=== PATIENT | female | born 1950 | race Caucasian/White ===

== ENCOUNTER 2019-09-15 05:25 | Inpatient (IN) | payer OTHER, MEDICARE ==
[2019-09-12 10:45] LABS: BASOPHILS % (AUTO) 0.3 % (0.0-2.0); EOSINOPHILS # (AUTO) 0.1 K/uL (0.0-0.4); EOSINOPHILS % (AUTO) 1.7 % (0.0-4.0); HEMATOCRIT 39.1 % (36-48); HEMOGLOBIN 13.1 g/dL (12.0-16.0); LYMPHOCYTES % (AUTO) 17.5 % (20.5-51.5); MEAN CORPUSCULAR HEMOGLOBIN 32 pg (27-31); MEAN CORPUSCULAR HGB CONC 34 % (32-36); MEAN CORPUSCULAR VOLUME 95 fL (79.0-98.0); MONOCYTES # (AUTO) 0.5 K/uL (0.0-1.0); MONOCYTES % (AUTO) 8.8 % (1.7-9.3); NEUTROPHILS # (AUTO) 4.1 K/uL (1.8-7.7); NEUTROPHILS % (AUTO) 71.7 % (40.0-70.0); PLATELET COUNT (AUTO) 221 K/uL (130-430); RED CELL DISTRIBUTION WIDTH 13.9 % (9.0-15.0); WHITE BLOOD COUNT (AUTO) 5.7 K/uL (4.8-10.8)
[2019-09-12 11:02] LABS: CREATININE 0.92 mg/dL (0.55-1.30); POTASSIUM 3.9 mmol/L (3.5-5.1)
[2019-09-12 11:20] LABS: BILIRUBIN,URINE NEGATIVE (NEGATIVE); CLARITY/URINE CLEAR (CLEAR); COLOR,URINE YELLOW (YELLOW); GLUCOSE,URINE NEGATIVE (NEGATIVE); KETONES,URINE NEGATIVE (NEGATIVE); LEUKOCYTE ESTERASE ,URINE NEGATIVE (NEGATIVE); NITRITE, URINE NEGATIVE (NEGATIVE); PROTEIN URINE NEGATIVE (NEGATIVE); UROBILINOGEN,URINE 0.2 (0.2-1.0)
[2019-09-12 11:21] LABS: BLOOD, URINE TRACE (NEGATIVE)
[2019-09-12 11:53] LABS: BACTERIA,URINE RARE /HPF (None Seen); MUCUS,URINE 1+ /LPF (None Seen); RBC,URINE 0-3 /HPF (0-3); WBC,URINE 0-3 /HPF (0-3)
[~2019-09-15] VITALS: Ht 165.1 cm; Wt 102.1 kg
[~2019-09-15 05:25] MED LIST: CIME800T PO; CYM30 PO; DILT120C89 PO; EST1 PO; GABA-533 PO; SPIR100T5 PO; TELM80TA2 PO
[2019-09-15] MEDS ORDERED: ACETAMINOPHEN 500 MG TABLET ONE (05:49)
[2019-09-15] MEDS ORDERED: GABAPENTIN 300 MG CAPSULE ONE (05:49)
[2019-09-15] MEDS ORDERED: TRANEXAMIC ACID 650 MG TABLET ONE (05:50)
[2019-09-15] MEDS ORDERED: CELECOXIB 200 MG CAPSULE ONE (05:50)
[2019-09-15] MEDS ORDERED: oxyCODONE HCL 10 MG TAB.ER.12H PO ONE ×2 (05:50→07:00)
[2019-09-15] MEDS ORDERED: PROMETHAZINE-DM 6.25 MG-15 MG/5 ML UDC ONE (05:50)
[2019-09-15] MEDS ORDERED: NACL 0.9% 1,000 ML IV ONE (07:00)
[2019-09-15] MEDS ORDERED: ACETAMINOPHEN 500 MG TABLET PO ONE (07:00)
[2019-09-15] MEDS ORDERED: CEFAZOLIN 2 GM IVPB PREMIX 50 ML IV ONE (07:00)
[2019-09-15] MEDS ORDERED: GABAPENTIN 300 MG CAPSULE PO ONE (07:00)
[2019-09-15] MEDS ORDERED: CELECOXIB 200 MG CAPSULE PO ONE (07:00)
[2019-09-15] MEDS ORDERED: TRANEXAMIC ACID 650 MG TABLET PO ONE (07:00)
[2019-09-15] MEDS ORDERED: ROPIVACAINE HCL/PF 5 MG/ML 0.5% 30 ML VIAL INJ ONE (07:25)
[2019-09-15] MEDS ORDERED: TRANEXAMIC ACID 1,000 MG/10 ML VIAL IV ONE (07:25)
[2019-09-15] MEDS ORDERED: VANCOMYCIN HCL 1000 MG/VIAL IV ONE (07:25)
[2019-09-15] MEDS ORDERED: WATER FOR IRRIGATION,STERILE 1,000 ML IRRIG.SOLN IR ONE (07:25)
[2019-09-15] MEDS ORDERED: POLYMYXIN 500,000/BACIT.10,000 UNITS in NS IRR 1 L IR ONE (07:25)
[2019-09-15] MEDS ORDERED: MORPHINE SULFATE 10MG/10ML PF AMP EP ONE (07:25)
[2019-09-15] MEDS ORDERED: PROPOFOL 200MG/ 20ML VIAL (DIPRIVAN) IV ONE (07:25)
[2019-09-15] MEDS ORDERED: MIDAZOLAM HCL 5 MG/5 ML VIAL IVP ONE (07:25)
[2019-09-15] MEDS ORDERED: LR 1,000 ML IV.SOLN IV ONE (07:25)
[2019-09-15] MEDS ORDERED: BUPIVACAINE /DEX PF 0.75% SPINAL 2 ML AMP INJ ONE (07:25)
[2019-09-15] MEDS ORDERED: KETOROLAC TROMETHAMINE 60 MG/2 ML VIAL IM PRN (08:15)
[2019-09-15] MEDS ORDERED: MORPHINE SULFATE 10MG/10ML PF AMP SP SCH (08:15)
[2019-09-15] MEDS ORDERED: NALBUPHINE HCL 10 MG/ML AMP IVP PRN (08:15)
[2019-09-15] MEDS ORDERED: DIPHENHYDRAMINE INJ 50 MG/ML VIAL IVP PRN (08:15)
[2019-09-15] MEDS ORDERED: ONDANSETRON HCL 4 MG/2 ML VIAL IVP PRN (08:15)
[2019-09-15] MEDS ORDERED: fentaNYL CITRATE/PF 100 MCG/2 ML AMP IVP PRN ×2 (08:15)
[2019-09-15] MEDS ORDERED: NALOXONE HCL 0.4 MG/ML AMP (NARCAN) IVP PRN ×2 (08:15)
[2019-09-15] MEDS ORDERED: D5/0.45 NS 1,000 ML IV ONE (09:31)
[2019-09-15] MEDS ORDERED: ACETAMINOPHEN 325 MG TABLET PO PRN (09:45)
[2019-09-15] MEDS ORDERED: BISACODYL 10 MG/SUPPOSITORY RC PRN (09:45)
[2019-09-15] MEDS ORDERED: CIMETIDINE Non-Formulary 400 MG TABLET PO SCH (12:30)
[2019-09-15] MEDS ORDERED: DILTIAZEM HCL 120 MG CAP.SR.24H PO ONE (12:30)
[2019-09-15] MEDS: CEFAZOLIN 1 GM IVPB PREMIX 50 ML IV SCH ×2 (13:21→21:42)
[2019-09-15] MEDS ORDERED: FAMOTIDINE 20 MG TABLET PO ONE (14:15)
[2019-09-15 16:11] VITALS: BP_SYST 116
[2019-09-15 17:00] VITALS: BP_SYST 143
[2019-09-15] MEDS: RIVAROXABAN 10 MG TABLET PO SCH (18:35)
[2019-09-15 20:00] VITALS: BP_SYST 121
[2019-09-15] MEDS: HYDROcodone/ACETAMIN 7.5-325 MG TAB PO PRN (22:51)
[2019-09-16 00:12] VITALS: BP_SYST 138
[2019-09-16] MEDS: HYDROcodone/ACETAMIN 7.5-325 MG TAB PO PRN ×2 (04:02→10:14)
[2019-09-16] MEDS ORDERED: DIPHENHYDRAMINE HCL 50 MG CAPSULE PO PRN (04:45)
[2019-09-16 08:24] VITALS: BP_SYST 145
[2019-09-16] MEDS ORDERED: TELMISARTAN 80 MG TABLET PO SCH (09:00)
[2019-09-16] MEDS: LOSARTAN POTASSIUM 50 MG TABLET (COZAAR) PO SCH (09:04)
[2019-09-16] MEDS: DULoxetine HCL 30 MG CAPSULE.DR (CYMBALTA) PO SCH (09:04)
[2019-09-16] MEDS: DILTIAZEM HCL 120 MG CAP.SR.24H PO SCH (09:05)
[2019-09-16] MEDS: FAMOTIDINE 20 MG TABLET PO SCH (09:05)
[2019-09-16] MEDS: GABAPENTIN 400 MG CAPSULE PO SCH (09:05)
[2019-09-16] MEDS: SPIRONOLACTONE 50 MG TABLET (ALDACTONE) PO SCH (09:06)
[2019-09-16] MEDS: ESTRADIOL 1 MG TABLET (ESTRACE) PO SCH (09:06)
[2019-09-16 11:28] LABS: BASOPHILS % (AUTO) 0.2 % (0.0-2.0); EOSINOPHILS % (AUTO) 0.2 % (0.0-4.0); HEMATOCRIT 34.8 % (36-48); HEMOGLOBIN 11.8 g/dL (12.0-16.0); LYMPHOCYTES # (AUTO) 0.7 K/uL (1.0-5.5); LYMPHOCYTES % (AUTO) 7.1 % (20.5-51.5); MEAN CORPUSCULAR HEMOGLOBIN 33 pg (27-31); MEAN CORPUSCULAR HGB CONC 34 % (32-36); MEAN CORPUSCULAR VOLUME 96 fL (79.0-98.0); MONOCYTES # (AUTO) 1.1 K/uL (0.0-1.0); MONOCYTES % (AUTO) 10.9 % (1.7-9.3); NEUTROPHILS # (AUTO) 8.4 K/uL (1.8-7.7); NEUTROPHILS % (AUTO) 81.6 % (40.0-70.0); PLATELET COUNT (AUTO) 212 K/uL (130-430); RED BLOOD CELL COUNT(AUTO) 3.63 MIL/uL (4.2-6.2); RED CELL DISTRIBUTION WIDTH 14.4 % (9.0-15.0); WHITE BLOOD COUNT (AUTO) 10.3 K/uL (4.8-10.8)
[2019-09-16 12:01] LABS: CALCIUM 8.6 mg/dL (8.4-11.0); CREATININE 1.07 mg/dL (0.55-1.30); POTASSIUM 3.7 mmol/L (3.5-5.1)
[2019-09-16 12:06] LABS: ALBUMIN 3.4 g/dL (3.4-4.8); TOTAL BILIRUBIN 1.1 mg/dL (0.0-1.0)
[2019-09-16] MEDS: MORPHINE SULFATE 10 MG/ML VIAL IM PRN ×2 (12:13→17:46)
[2019-09-16 12:36] VITALS: BP_SYST 137
[2019-09-16 16:36] VITALS: BP_SYST 132
[2019-09-16] MEDS: RIVAROXABAN 10 MG TABLET PO SCH (17:45)
[2019-09-16 21:00] VITALS: BP_SYST 144
[2019-09-17] VITALS: BP_SYST 121
[2019-09-17 07:45] VITALS: BP_SYST 147
[2019-09-17] MEDS: DULoxetine HCL 30 MG CAPSULE.DR (CYMBALTA) PO SCH (09:14)
[2019-09-17] MEDS: GABAPENTIN 400 MG CAPSULE PO SCH (09:15)
[2019-09-17] MEDS: LOSARTAN POTASSIUM 50 MG TABLET (COZAAR) PO SCH (09:15)
[2019-09-17] MEDS: DILTIAZEM HCL 120 MG CAP.SR.24H PO SCH (09:15)
[2019-09-17] MEDS: FAMOTIDINE 20 MG TABLET PO SCH (09:16)
[2019-09-17] MEDS: SPIRONOLACTONE 50 MG TABLET (ALDACTONE) PO SCH (09:16)
[2019-09-17] MEDS: ESTRADIOL 1 MG TABLET (ESTRACE) PO SCH (09:17)
[2019-09-17] MEDS: HYDROcodone/ACETAMIN 7.5-325 MG TAB PO PRN (09:17)
[2019-09-17 12:00] VITALS: BP_SYST 134
[2019-09-17 13:25] VITALS: BP_SYST 135
== END 2019-09-17 14:30 | disposition home health service (06) | DRG 470 ==
LOC: SMU 05:25
PROVIDERS: ADMIT Orthopaedic Surgery; ATTEND Orthopaedic Surgery
PROC: 0SRC0J9 Replacement of Right Knee Joint with Synthetic Substitute, Cemented, Open Approach (ICD-10-PCS; principal; 2019-09-15 07:30)
DX: M17.11 Unilateral primary osteoarthritis, right knee (principal); C91.10 Chronic lymphocytic leukemia of B-cell type not having achieved remission; I10 Essential (primary) hypertension; Z90.710 Acquired absence of both cervix and uterus; G89.29 Other chronic pain; Z79.899 Other long term (current) drug therapy
CPT/HCPCS: 36415; 71046-TC; 80048; 80053; 81000-TC; 85025; 85610-TC; 85730-TC; 87081; 88305; 88311; 93005; 94010; 97039; 97110-GP; 97112-GP; 97116-GP; 97163; 97530-GP; C1713; C1776; J0690; J1200; J2250; J2270; J2274; J2405; J2704; J3370; J3490; J7120; Q0163

== ENCOUNTER 2020-03-01 05:45 | Outpatient (CLI) | payer OTHER, MEDICARE, SELFPAY ==
[2020-02-27 08:51] LABS: BILIRUBIN,URINE NEGATIVE (NEGATIVE); CLARITY/URINE CLEAR (CLEAR); COLOR,URINE YELLOW (YELLOW); GLUCOSE,URINE NEGATIVE (NEGATIVE); KETONES,URINE NEGATIVE (NEGATIVE); LEUKOCYTE ESTERASE ,URINE NEGATIVE (NEGATIVE); NITRITE, URINE NEGATIVE (NEGATIVE); PH,URINE 5.5 (5.0-8.0); PROTEIN URINE NEGATIVE (NEGATIVE); UROBILINOGEN,URINE 0.2 (0.2-1.0)
[2020-02-27 08:56] LABS: BASOPHILS % (AUTO) 0.5 % (0.0-2.0); EOSINOPHILS # (AUTO) 0.2 K/uL (0.0-0.4); EOSINOPHILS % (AUTO) 4.3 % (0.0-4.0); HEMATOCRIT 38.1 % (36-48); HEMOGLOBIN 12.7 g/dL (12.0-16.0); LYMPHOCYTES # (AUTO) 1.4 K/uL (1.0-5.5); LYMPHOCYTES % (AUTO) 28.9 % (20.5-51.5); MEAN CORPUSCULAR HEMOGLOBIN 31 pg (27-31); MEAN CORPUSCULAR HGB CONC 33 % (32-36); MEAN CORPUSCULAR VOLUME 92 fL (79.0-98.0); MONOCYTES # (AUTO) 0.4 K/uL (0.0-1.0); MONOCYTES % (AUTO) 8.4 % (1.7-9.3); NEUTROPHILS # (AUTO) 2.8 K/uL (1.8-7.7); NEUTROPHILS % (AUTO) 57.9 % (40.0-70.0); PLATELET COUNT (AUTO) 184 K/uL (130-430); RED BLOOD CELL COUNT(AUTO) 4.13 MIL/uL (4.2-6.2); RED CELL DISTRIBUTION WIDTH 15.8 % (9.0-15.0); WHITE BLOOD COUNT (AUTO) 4.8 K/uL (4.8-10.8)
[2020-02-27 09:05] LABS: BLOOD, URINE TRACE (NEGATIVE)
[2020-02-27 09:17] LABS: CALCIUM 8.7 mg/dL (8.4-11.0); CREATININE 0.98 mg/dL (0.55-1.30); POTASSIUM 3.7 mmol/L (3.5-5.1)
[2020-02-27 09:28] LABS: BACTERIA,URINE FEW /HPF (None Seen); WBC,URINE 0-3 /HPF (0-3)
[2020-02-27 09:36] LABS: PROTHROMBIN TIME 9.8 SECS (9.5-12.5)
[~2020-03-01] VITALS: Ht 165.1 cm; Wt 92.1 kg
[2020-03-01] MEDS ORDERED: CEFAZOLIN SOD 1 GM in D5W 50 ML IV ONE (07:00)
== END 2020-03-01 07:00 | disposition home or self-care (01) ==
LOC: SMU 05:45 → SLB 05:45 → UNDOADMIN 05:45 → SLB 07:00 → EDSTATUS 07:30
PROVIDERS: ATTEND Orthopaedic Surgery
DX: Z11.59 Encounter for screening for other viral diseases (principal); M17.12 Unilateral primary osteoarthritis, left knee; Z90.710 Acquired absence of both cervix and uterus; Z96.651 Presence of right artificial knee joint
CPT/HCPCS: 36415; 71046; 80048; 81000; 85025; 85610; 85730; U0003; J0690; J7060

== ENCOUNTER 2020-03-08 06:00 | Inpatient (IN) | payer OTHER, MEDICARE ==
[~2020-03-08] VITALS: Ht 165.1 cm; Wt 92.1 kg
[2020-03-08] MEDS ORDERED: CEFAZOLIN SOD 1 GM in D5W 50 ML IV ONE (07:00)
[2020-03-08] MEDS ORDERED: POLYMYXIN 500,000/BACIT.10,000 UNITS in NS IRR 1 L IR ONE (07:37)
[2020-03-08] MEDS ORDERED: ONDANSETRON HCL 4 MG/2 ML VIAL IVP PRN (08:45)
[2020-03-08] MEDS ORDERED: HYDROmorphone 1 MG INJ. 1 MG/ML AMPUL IVP PRN ×2 (08:45)
[2020-03-08] MEDS ORDERED: DIPHENHYDRAMINE INJ 50 MG/ML VIAL IVP PRN (08:45)
[2020-03-08] MEDS ORDERED: MEPERIDINE HCL/PF 25 MG/ML DISP.SYRIN IVP PRN (08:45)
[2020-03-08] MEDS ORDERED: MIDAZOLAM HCL 2 MG/2 ML VIAL (VERSED) IVP PRN (08:45)
[2020-03-08] MEDS ORDERED: NALOXONE HCL 0.4 MG/ML AMP (NARCAN) IVP PRN (08:45)
[2020-03-08] MEDS ORDERED: D5/0.45 NS 1,000 ML IV ONE (09:36)
[2020-03-08] MEDS ORDERED: MORPHINE SULFATE 10 MG/ML VIAL IM PRN (09:45)
[2020-03-08] MEDS ORDERED: BISACODYL 10 MG/SUPPOSITORY RC PRN (09:45)
[2020-03-08] MEDS ORDERED: ACETAMINOPHEN 325 MG TABLET PO PRN (09:45)
[2020-03-08] MEDS ORDERED: MORPHINE SULFATE 10MG/10ML PF AMP ONE (09:50)
[2020-03-08] MEDS ORDERED: NS IRRIG SOLN 1000 ML IR ONE (09:50)
[2020-03-08] MEDS ORDERED: LR 1,000 ML IV.SOLN IV ONE (09:50)
[2020-03-08] MEDS ORDERED: ePHEDrine sulfate 50 MG/ML VIAL ONE (09:50)
[2020-03-08] MEDS ORDERED: KETOROLAC TROMETHAMINE 30 MG VIAL ONE (09:50)
[2020-03-08] MEDS ORDERED: ONDANSETRON HCL 4 MG/2 ML VIAL ONE (09:50)
[2020-03-08] MEDS ORDERED: TRANEXAMIC ACID 1,000 MG/10 ML VIAL ONE (09:50)
[2020-03-08] MEDS ORDERED: DEXAMETHASONE SOD PHOSPHATE 4 MG/ML VIAL ONE (09:50)
[2020-03-08] MEDS ORDERED: BUPIVACAINE /PF 0.75% 10 ML VIAL INJ ONE (09:50)
[2020-03-08] MEDS ORDERED: PROPOFOL 200MG/ 20ML VIAL (DIPRIVAN) IV ONE (09:50)
[2020-03-08] MEDS ORDERED: MIDAZOLAM HCL 5 MG/ML VIAL (VERSED) IV ONE (09:50)
[2020-03-08] MEDS ORDERED: SEVOFLURANE 15 MIN GAS INH ONE (09:50)
[2020-03-08 10:41] VITALS: BP_SYST 98
[2020-03-08] MEDS: CEFAZOLIN 1 GM IVPB PREMIX 50 ML IV SCH ×2 (11:20→17:48)
[2020-03-08 12:30] VITALS: BP_SYST 101
[2020-03-08] MEDS: ONDANSETRON HCL 4 MG/2 ML VIAL IVP PRN ×2 (12:59→17:46)
[2020-03-08 15:27] VITALS: BP_SYST 98
[2020-03-08 16:53] VITALS: BP_SYST 124
[2020-03-08] MEDS ORDERED: RIVAROXABAN 10 MG TABLET PO ONE (17:45)
[2020-03-08] MEDS: LR 1,000 ML IV SCH (17:54)
[2020-03-08 20:30] VITALS: BP_SYST 133
[2020-03-09 00:15] VITALS: BP_SYST 119
[2020-03-09] MEDS: HYDROcodone/ACETAMIN 7.5-325 MG TAB PO PRN ×4 (00:51→19:56)
[2020-03-09] MEDS: LR 1,000 ML IV SCH ×3 (01:02→23:50)
[2020-03-09] MEDS: RIVAROXABAN 10 MG TABLET PO SCH (08:31)
[2020-03-09 12:36] VITALS: BP_SYST 115
[2020-03-09 16:00] VITALS: BP_SYST 132
[2020-03-09] MEDS ORDERED: GABAPENTIN 400 MG CAPSULE PO ONE (18:45)
[2020-03-09 19:50] VITALS: BP_SYST 138
[2020-03-10] MEDS ORDERED: TEMAZEPAM 15 MG CAPSULE PO PRN (01:00)
[2020-03-10 01:03] VITALS: BP_SYST 120
[2020-03-10] MEDS: HYDROcodone/ACETAMIN 7.5-325 MG TAB PO PRN ×3 (03:48→14:33)
[2020-03-10 08:00] VITALS: BP_SYST 126
[2020-03-10] MEDS ORDERED: GABAPENTIN 400 MG CAPSULE PO SCH (09:00)
[2020-03-10] MEDS: LR 1,000 ML IV SCH (09:30)
[2020-03-10] MEDS: RIVAROXABAN 10 MG TABLET PO SCH (09:31)
[2020-03-10 11:05] LABS: BASOPHILS # (AUTO) 0.1 K/uL (0.0-0.2); BASOPHILS % (AUTO) 0.6 % (0.0-2.0); EOSINOPHILS % (AUTO) 0.5 % (0.0-4.0); HEMATOCRIT 34.4 % (36-48); HEMOGLOBIN 11.3 g/dL (12.0-16.0); LYMPHOCYTES # (AUTO) 1.2 K/uL (1.0-5.5); MEAN CORPUSCULAR HEMOGLOBIN 31 pg (27-31); MEAN CORPUSCULAR HGB CONC 33 % (32-36); MEAN CORPUSCULAR VOLUME 93 fL (79.0-98.0); MONOCYTES # (AUTO) 0.7 K/uL (0.0-1.0); MONOCYTES % (AUTO) 9.1 % (1.7-9.3); NEUTROPHILS # (AUTO) 6.2 K/uL (1.8-7.7); NEUTROPHILS % (AUTO) 74.8 % (40.0-70.0); PLATELET COUNT (AUTO) 157 K/uL (130-430); RED BLOOD CELL COUNT(AUTO) 3.71 MIL/uL (4.2-6.2); RED CELL DISTRIBUTION WIDTH 16.9 % (9.0-15.0); WHITE BLOOD COUNT (AUTO) 8.3 K/uL (4.8-10.8)
[2020-03-10 11:14] LABS: CALCIUM 8.4 mg/dL (8.4-11.0); CREATININE 0.99 mg/dL (0.55-1.30); POTASSIUM 3.2 mmol/L (3.5-5.1)
[2020-03-10 11:19] LABS: ALBUMIN 3.5 g/dL (3.4-4.8); TOTAL BILIRUBIN 0.9 mg/dL (0.0-1.0)
[2020-03-10 12:28] VITALS: BP_SYST 120
[2020-03-10 16:31] VITALS: BP_SYST 123
[2020-03-10 16:50] VITALS: BP_SYST 133
== END 2020-03-10 17:10 | disposition home health service (06) | DRG 470 ==
LOC: SMU 06:00
PROVIDERS: ADMIT Orthopaedic Surgery; ATTEND Orthopaedic Surgery
PROC: 0SRD0J9 Replacement of Left Knee Joint with Synthetic Substitute, Cemented, Open Approach (ICD-10-PCS; principal; 2020-03-08 07:30)
DX: M17.12 Unilateral primary osteoarthritis, left knee (principal); I10 Essential (primary) hypertension; G62.9 Polyneuropathy, unspecified
CPT/HCPCS: 36415; 80053; 85025; 87081; 88305; 88311; 97039; 97110-GP; 97116-GP; 97530-GP; J0690; J1100; J1200; J1885; J2250; J2270; J2274; J2405; J2704; J3490; J7060; J7120